=== PATIENT | female | born 1960 | race Caucasian/White ===

== ENCOUNTER 2017-12-22 10:54 | Emergency (ER) | payer MEDICARE, MEDICAID, SELFPAY ==
[2017-12-22 11:02] VITALS: BP 135/92; PULSE 86; RESP 16; TEMP 37; O2SAT 100
--- NOTE | 2017-12-22 11:18 | DI.REPORT_ITS ---
SYMPTOM/DIAGNOSIS: H/O SEVERE STENOSIS, LT BUTTOCK PAIN WITH RADIATION TO LEFT FOOT LUMBAR SPINE CT: Multiple contiguous axial images of the lumbar spine were obtained. Sagittal and coronal reformatted images were evaluated on the Siemens work station. Comparison examination is 07/23/15. Lumbar vertebral body numbering is consistent would be consistent in this report with the MRI from 07/23/15. This does differ in the numbering used in the [facility] report for 12/22/17. At L 5-S 1, there is a diffuse disc bulge. There are hypertrophic changes of the facets. This does result in mild narrowing of the central spinal canal and mild bilateral neural foraminal stenosis on the right and moderate neural foraminal stenosis on the left. At L 4-5, there is anterolisthesis which has progressed since 07/23/15. There is disc space narrowing and a vacuum disc. Endplate sclerosis is present. There are hypertrophic changes of the facets noted. No spondylolysis is present. There is moderate central spinal canal stenosis and moderately severe right and severe left neural foraminal stenosis. At L 3-4, there is a diffuse disc bulge. There are hypertrophic changes of the facets and ligamentum flavum resulting in moderate to moderately severe central spinal canal stenosis. There is moderate right and mild left neural foraminal stenosis. At L 2-3, there is no focal disc herniation, central spinal canal or neural foraminal stenosis present. L 1-2 shows no focal disc herniation, central spinal canal or neural foraminal stenosis. No acute fracture is seen in the lumbar spine. The paraspinal soft tissues are unremarkable. IMPRESSION: 1. Multi level degenerative changes in the lumbar spine. 2. Progression of the anterolisthesis of L 4 on L 5. The findings result in central spinal canal and neural foraminal stenosis at this level as described above. 3. Multi level degenerative changes resulting in central spinal canal and neural foraminal stenosis as described above. The findings are most marked at L 3-4 and L 4-5.
--- NOTE | 2017-12-22 11:23 | ED.GENADUL_ITS ---
Disposition Clinical Impression: Sciatica, Lumbago Disposition: HOME Condition: Good Instructions: Sciatica (ED) Additional Instructions: Please continue to take your medications as directed. Please contact your [facility] neurosurgeon as soon as possible for reevaluation. If you notice any anesthesia or numbness or tingling in your groin, any bowel or bladder incontinence, any lack of sensation when defecating, need to return immediately. If you notice any worsening of your symptoms, or any new symptoms such as vomiting, diarrhea, fever, chills, shortness of breath, chest pain, numbness, weakness, or fainting , please return immediately to the emergency department for reevaluation. Please follow up with your primary care provider as soon as possible for reassessment and reevaluation. As always, it was a pleasure participating in your medical care today. Referrals: Kim Parekh MD [Primary Care Provider] - Medical Decision Making - Medical Decision Making This is a 57-year-old female who presents for evaluation of left back with radiation of left leg pain. She has a history of severe spinal stenosis, for which she sees a neurosurgeon at [facility]. She states that she has been a candidate for neurosurgery however she is been unwilling to have the surgery at this point. She has a history of sciatica on the right side. She did fall 5 days ago, and has had gradual worsening of her symptoms since then. She was given Flexeril and ibuprofen by her primary care provider and is noted some improvement with this. However because of the continuing pain she is concerned that there may be some other anatomic pathology. Physical exam demonstrates no pain with movements of the joints or extremities. No pain on palpation of the calf. No signs of suggest DVT or joint or osseous abnormality. Her pain seems to mainly be referred from the lower back all the way down in a sciatic-like component. Presentation is slightly atypical though as it is worse than it normally is for her. She demonstrates no signs of saddle anesthesia, she has good rectal tone, and no bowel or bladder incontinence. Postvoid urinalysis revealed less than 17 mL. No signs of retention. We will get a CT scan of her lumbar and sacral area for evaluation of acute pathology or problem here. 1:[address] scan has resulted, imaging demonstrates no acute process, diffuse degenerative disc disease including areas of spinal stenosis and neuroforaminal narrowing. No large fracture, tumor or mass. I did contact the radiologist and discussed the case personally with him. Unfortunately we do not have MRI capabilities at this time. However on exam the patient continues to demonstrate no red flags for spinal cord compression. She has no saddle anesthesia, bowel or bladder incontinence, decreased rectal tone, or other abnormalities in regard to that. She does have the leg pain, but however this appears to be more peripheral on my exam. At this point with no signs of cord compressions I feel that she can be safely discharged home however she will require close follow-up with her [facility] neurosurgeon. We discussed red flags which to return, as well as the importance of contacting her neurosurgeon on Sunday. Patient understands. Patient does not want any additional medications for pain at this time. I have extensively reviewed the treatment plan and discharge instructions with the patient. I have addressed all patient concerns at this time. The patient was made aware of what symptoms to monitor for that would warrant a return to the emergency department. Discussed the plan with the patient, they demonstrate verbal understanding and agreement with our assessment and plan at this time. History of Present Illness - General Chief complaint: Nk/Back Pain Stated complaint: LEG/SIDE PAIN Time Seen by Provider: 12/22/17 10:58 - History of Present Illness Initial comments: This is a 57-year-old female with a past medical history of severe spinal stenosis in her cervical and lumbar vertebra, hypertension, elevated cholesterol, who sees neurosurgery at [facility] tells her that she is a candidate for potential future surgical intervention. She presents today for evaluation of left-sided back and leg pain. Patient states that 5 days ago she threw a ball for her dog and unfortunately fell and landed on her right hand side, since then she has had slight worsening left-sided pain, with an associated and radiating pain going from the left buttock all the way down to the left leg. It is worsened with movement. It is improved with palpation and rubbing of the leg. She denies any saddle anesthesia, bowel or bladder incontinence. She denies any weakness. She denies any significant weakness. She describes the pain as a severe ache in sensation. There is some associated burning sensation as well. She was seen by her primary care provider who switched her from diclofenac to maximum dose NSAIDs/Motrin. She also takes gabapentin and has been prescribed Flexeril. She states that the Flexeril and ibuprofen do improve her symptoms somewhat, but do not take them away. Patient' s primary concern today is for concern of new anatomical problem pathology in her back. Past surgical history is positive for bilateral knee replacement. She denies any IV or illicit drug use. She denies any pertinent family history. She has no other complaints at this time. - Related Data Acetaminophen [Tylenol Extra Strength] 1,000 mg PO PRN tab-cap 07/15/12 Atomoxetine [Strattera] 80 mg PO DAILY tab-cap 02/17/13 Albuterol Sulfate [Proair Hfa] 1 - 2 puff IH QID PRN #2 inhaler 06/16/16 Magnesium Oxide [Magnesium] 400 mg PO DAILY #30 tab-cap 04/04/17 Nifedipine [Nifedipine ER] 90 mg PO DAILY tab-cap 06/07/17 Duloxetine HCl 30 mg PO DAILY #90 tab-cap 07/02/17 Montelukast Sodium [Singulair] 10 mg PO DAILY #90 tab 07/31/17 Gabapentin 1,200 mg PO TID #180 tab-cap 10/23/17 Pantoprazole Sodium [Protonix] 40 mg PO DAILY #90 tab 10/23/17 Fluticasone Propionate [Flonase] 2 sprays NS DAILY #1 script 11/05/17 Esomeprazole Magnesium 40 mg PO DAILY #30 tab-cap 11/07/17 Diclofenac Sodium 75 mg PO BID PRN #60 tab-cap 11/16/17 Losartan [Cozaar] 100 mg PO DAILY #90 tab-cap 11/23/17 Cyclobenzaprine [Flexeril] 5 - 10 mg PO TID #90 tab-cap 12/20/17 Ibuprofen 800 mg PO TID #90 tab-cap 12/20/17 Allergies Allergy/AdvReac Type Severity Reaction Status Date / Time codeine AdvReac Intermediate FEELS Unverified 12/22/17 11:33 LIKE I AM CRAZY lisinopril AdvReac Mild COUGH Unverified 12/22/17 11:33 Review of Systems Other: 10 point review of systems was performed, pertinent positives and negatives are noted in the history of present illness. Past Medical History - Past Medical History Medical history: GERD, hyperlipidemia, hypertension - Social History Alcohol use: none Drug use: none General Exam - Other Other exam information: 1.Const: Well-nourished, Well-developed, appearing stated age 2.Eyes: PERRL, no conjunctival injection, and symmetrical lids. 3.ENT: Atraumatic external nose and ears. Moist MM. Neck: Symmetric, trachea midline, No thyromegaly. 4.CVS: +S1/S2, No murmurs or gallops. Peripheral pulses 2+ and equal in all extremities. Brisk capillary refill in all extremities. 5.RESP: Unlabored respiratory effort. Clear to auscultation bilaterally. No wheezes rales or rhonchi 6.GI: Soft, Nontender/Nondistended, No hepatosplenomegaly. No guarding or rebound. 7.MSK: Normocephalic/Atraumatic, Extremities w/o deformity or ttp No cyanosis or clubbing, Normal movement of all extremities. No midline tenderness to palpation over the CTLS spine. Normal ROM in flexion, extension, side bend, and rotation. Very minimal left-sided paraspinal tenderness. No significant reproducibility of her symptoms with palpation of the left buttock, over the sciatic nerve. Patient has +5 out of 5 strength in the lower extremities in dorsiflexion and plantarflexion, knee flexion and extension, hip flexion and extension. There is +2 over 2 dorsalis pedis pulses bilaterally. There is normal sensation to the skin with light touch at the foot, knee, and hip. Normal saddle sensation. Good sensation over the deep sural nerve area bilaterally. Rectal exam demonstrated normal rectal tone with no abnormalities. Reflexes are +1 over 4 in the patellar reflex bilaterally. +5 out of 5 strength in the medial, ulnar, radial nerve distribution bilaterally in the hands as well as intact light touch sensation to these dermatomes on the hands. No pain with range of motion for the hip knee and ankle joints. No calf tenderness. Patient is able to ambulate with some assistance without significant difficulty. 8.Skin: Warm, Dry. No rashes or lesions. 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 Sensation grossly intact, no focal neurologic deficits. 10.Psych: (AAO) x3. Appropriate mood and affect
[2017-12-22 11:29] LABS: Bilirubin Negative (Negative); Blood Trace-intact (Negative); Clarity Clear; Glucose Negative (Negative); Ketones Negative (Negative); Leukocyte Esterase Negative (Negative); Nitrite Negative (Negative); Specific Gravity 1.015 (1.005-1.025); Urobilinogen 0.2 EU/dL (Up TO 0.2)
[2017-12-22] MEDS: Lidocaine 5% Patch 1 PATCH TP (11:30)
[2017-12-22] MEDS: Acetaminophen 500 MG TAB 1000 MG PO (11:30)
[2017-12-22 11:40] LABS: Bacteria Rare HPF (Negative); Crystals Negative HPF (Negative); Epithelial Cells Rare HPF (Negative); RBC 0-2 (0-2); WBC 0-2 HPF (0-5)
[2017-12-22 11:41] LABS: C & S Indicated? No; Casts Negative LPF (Negative); Mucus Negative (Negative)
--- NOTE | 2017-12-22 12:26 | DI.[facility]_ITS ---
EXAM: CT Lumbar Spine Without Intravenous Contrast CLINICAL HISTORY: 57 years old, female; Signs and symptoms; Other: HX of severe stenosis, left buttock pain with radiation to the left foot TECHNIQUE: Axial computed tomography images of the lumbar spine without intravenous contrast. All CT scans at this facility use at least one of these dose optimization techniques: automated exposure control; mA and/or kV adjustment per patient size (includes targeted exams where dose is matched to clinical indication); or iterative reconstruction. Coronal and sagittal reformatted images were created and reviewed. COMPARISON: MRI - LUMBAR SPINE WO CONTRAST 07/23/2015 10:28 PM FINDINGS: Diffuse degenerative disc and facet disease. Mild anterior position of L3 with respect to L4 felt to be due to degenerative disc and facet disease. No evidence of acute fracture. Paraspinal soft tissues unremarkable. Suggestion of possible spinal stenosis at the L2-3 level and also the L3-4 level the period there is also bilateral neural foraminal narrowing at each of these levels. Please see the final report as to the possible use of MRI as a more specific means of evaluation if clinically indicated. IMPRESSION: Diffuse degenerative disc disease including areas of spinal stenosis and neuroforaminal narrowing At Dictated and Authenticated by: Ryan Hook MD. Ordering:ANGELITO BENTON MD
== END 2017-12-22 13:30 | disposition home or self-care (01) ==
PROVIDERS: Emergency Provider Student in an Organized Health Care Education/Training Program; PCP Family Medicine
DX: M54.42 Lumbago with sciatica, left side (principal); I10 Essential (primary) hypertension
CPT/HCPCS: 72131; 99283 ×2; 81003; 81015

== ENCOUNTER → 2017-12-28 02:16 | Outpatient (CLI) | payer MEDICARE, MEDICAID, SELFPAY ==
--- NOTE | 2017-12-28 08:50 | DI.REPORT_ITS ---
SYMPTOM/DIAGNOSIS: INCREASED SYMPTOMS, KNOWN SPINAL STENOSIS, LOW BACK PAIN, M48.061 LUMBAR SPINE MRI: Routine noncontrast examination. Comparison MRI is 07/23/15. Comparison CT scan is 12/22/17. The conus medullaris has a normal appearance and location. At L 5-S 1, there is a mild diffuse disc bulge. There are degenerative changes of the facets. There is very mild narrowing of the central spinal canal. There is moderately severe narrowing of the left neural foramen and mild narrowing of the right neural foramen. At L 4-5, there is grade I anterolisthesis. There are hypertrophic changes of the facets and ligamentum flavum. The findings result in severe central spinal canal stenosis. There is moderate right and moderately severe left neural foraminal stenosis. Degenerative disc disease is present. At L 3-4, there is a diffuse disc bulge. There are hypertrophic changes of the facets and ligament flavum causing moderately severe central spinal canal stenosis. There is mild bilateral neural foraminal stenosis present. At L 2-3 and L 1-2, there is no focal disc herniation, central spinal canal or neural foraminal stenosis. There is normal signal of the intervertebral discs. Apart from the degenerative endplate signal changes, predominantly at L 4-5, the marrow signal is within normal limits. IMPRESSION: 1. Multi level degenerative changes in the lumbar spine. 2. Degenerative changes and anterolisthesis at L 4-5 contributing to central spinal canal and neural foraminal stenosis. 3. Degenerative changes at L 3-4 contributing to central spinal canal and neural foraminal stenosis. 4. Left neural foraminal stenosis at L 5-S 1 due to the degenerative changes. Please see the above discussion for complete details.
== END ==
PROVIDERS: PCP Family Medicine; Visit Provider Family Medicine
DX: M48.07 Spinal stenosis, lumbosacral region; M54.5 Low back pain; M47.817 Spondylosis without myelopathy or radiculopathy, lumbosacral region
CPT/HCPCS: 72148

== ENCOUNTER 2018-01-02 00:27 | Outpatient (CLI) | payer MEDICARE, MEDICAID, SELFPAY ==
--- NOTE | 2018-01-02 10:13 | DI.RAD_ITS ---
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 The patient ingested thin and thick barium with multiple food consistencies. Note was made of penetration of the barium when eaten in conjunction with the apple. No aspiration was identified during the examination. The swallowing process was otherwise unremarkable during the examination. Please refer to the speech pathologist's report for complete details.
[2018-01-02] MEDS: Barium Sulfate 700 MG TAB PO (10:14)
== END 2018-01-02 00:47 ==
PROVIDERS: PCP Family Medicine; Visit Provider Otolaryngology Otolaryngology/Facial Plastic Surgery
DX: K21.9 Gastro-esophageal reflux disease without esophagitis (principal); R13.12 Dysphagia, oropharyngeal phase
CPT/HCPCS: 92611; G8996; 74220; J3490

== ENCOUNTER 2018-01-02 06:42 | Outpatient (CLI) | payer MEDICARE, MEDICAID, SELFPAY | END 2018-01-02 07:02 | PROVIDERS: PCP Family Medicine; Visit Provider Family Medicine | DX: R13.13 Dysphagia, pharyngeal phase (principal) | CPT/HCPCS: 92611; G8996 ==

== ENCOUNTER 2018-03-04 10:28 | Outpatient (CLI) | payer MEDICARE, MEDICAID, SELFPAY ==
[2018-03-04 12:55] LABS: HCT 39.4 % (36.0-46.0); HGB 13.6 g/dL (12.0-15.5); Mean Corp. HGB Concentration 34.5 g/dL (32.0-36.0); Mean Corpuscular Hemoglobin 30.2 pg (27.0-33.0); Mean Corpuscular Volume 87.4 fL (80-95); Mean Platelet Volume 9.5 fL (8.0-11.0); Platelet Count 276 x1000/uL (130-400); RBC 4.51 m/cumm (4.00-5.20); RBC Distribution Width 12.6 % (11.7-14.6); White Blood Cell Count 5.11 k/cumm (4.4-10.8)
[2018-03-04 13:23] LABS: Anion Gap 9.7 mmol/L (3-11); BUN 18 mg/dL (7-18); CO2 30.3 mmol/L (21.0-32.0); CREATININE 0.73 mg/dL (0.55-1.02); Chloride 102 mmol/L (98-107); Glucose 85 mg/dL (70-100); Potassium 3.9 mmol/L (3.5-5.1); Sodium 142 mmol/L (136-145)
== END 2018-03-04 10:48 ==
PROVIDERS: PCP Family Medicine; Visit Provider Family Medicine
DX: Z01.818 Encounter for other preprocedural examination (principal); M54.16 Radiculopathy, lumbar region; I10 Essential (primary) hypertension
CPT/HCPCS: 36415; 80048; 85027

== ENCOUNTER 2018-03-11 09:40 | Emergency (ER) | payer MEDICARE, MEDICAID, SELFPAY ==
[2018-03-11 09:51] VITALS: BP 140/76; PULSE 95; RESP 16; TEMP 36.4; O2SAT 98
--- NOTE | 2018-03-11 10:16 | DI.US_ITS ---
SYMPTOM/DIAGNOSIS: LEFT LOWER LEG PAIN AND SWELLING LEFT LOWER EXTREMITY ULTRASOUND: The deep veins of the left lower extremity show normal compression, augmentation and color flow. No evidence of a deep venous thrombus is identified. There is a 3 x 1.1 x 2.1 cm complex avascular fluid collection in the lower extremity corresponding to the area of palpable abnormality. There is surrounding edema in the subcutaneous tissues. This may represent a hematoma or resolving seroma. Abscess is considered less likely. IMPRESSION: 1. No evidence of a left lower extremity deep venous thrombus 2. 3 cm complex avascular fluid collection in the soft tissues. This may represent a hematoma or seroma. Please correlate clinically. The findings were discussed with Ruddy Booker of the Emergency Department on the date of the examination.
--- NOTE | 2018-03-11 10:17 | W.ED.GENAD ---
Discharge Plan Disposition Patient Disposition: HOME Condition: Stable Discharge Details Chief Complaint: Vascular Clinical Impression: Hematoma of left lower extremity, Varicose veins of lower extremity Primary Care Provider: Kim Parekh ED Provider: Ruddy Booker Home Meds and New Rx's Prescriptions: Continue montelukast [Singulair] 10 mg tablet 10 mg PO DAILY Qty: 90 RF: 4 ibuprofen 600 mg tablet 600 mg PO TID PRN (Reason: pain) Qty: 90 RF: 1 acetaminophen [Tylenol Extra Strength] 500 MG tablet 1,000 mg PO PRN RF: 0 atomoxetine [Strattera] 80 MG capsule 80 mg PO DAILY RF: 0 albuterol sulfate [ProAir HFA] 8.5 GM HFA aerosol inhaler 1 - 2 puff Inhalation QID PRNQty: 2 RF: 6 nifedipine 90 MG tablet extended release 24hr 90 mg PO DAILY RF: 0 duloxetine 30 MG capsule,delayed release(DR/EC) 30 mg PO DAILY Qty: 90 RF: 4 fluticasone 16 GM spray,suspension 2 spry NS DAILY Qty: 1 RF: 6 losartan 100 MG tablet 100 mg PO DAILY Qty: 90 RF: 3 esomeprazole magnesium 40 mg capsule,delayed release(DR/EC) 40 mg PO DAILY Qty: 90 RF: 3 gabapentin 600 mg tablet 1,200 mg PO TID Qty: 180 RF: 3 Discharge Instructions Instructions: Hematoma (ED) Additional Instructions: Feel free to return to the emergency department for any new or significant worsening of your symptoms otherwise follow-up with your primary care provider for reassessment. You may continue to use [id number] pain medication and wear your compression stockings. Referrals: Kim Parekh MD [Primary Care Provider] - (As needed for reassessment) Discharge Data Discharge Date/Time-TO BE ENTERED AT DEPARTURE: 03/11/18 13:51 Medical Decision Making Patient presenting to the emergency department for chief complaint of left lower leg pain and swelling. Patient states that 2 weeks ago she began having a palpable knot/nodule on her lower leg and thought nothing of it. Then over the last couple days this area has become ecchymotic significant increase in swelling and more uncomfortable. Patient states that she has a upcoming surgery for her back and was concerned about DVT. Physical exam does show significant varicose veins of the left lower extremity, swelling and ecchymosis to the distal tibia, no erythema and appropriate pulses. Patient has no significant tenderness to the thigh or proximal lower leg. Patient denies any injury or trauma. While patient's history of varicose veins and ecchymosis and swelling to make me consider DVT appearance of area does show some signs of may be occult injury but given that this is been going on for 2 weeks with recent increase of swelling and bruising I do feel that ultrasound image of the left lower extremity is prudent. Given concern for possible occult injury radiological imaging was also ordered. Patient denies any need for pain medication at this time. Review of ultrasound imaging with radiologist stating that there is a small fluid collection in the left lower medial aspect of the tibia otherwise no signs of DVT or thrombosis and no acute bony abnormalities on plain film imaging. Given this patient was discharged to follow-up with primary care provider for reassessment or to return for new or worsening symptom. After discussion of diagnosis and plan of care patient has no further needs, questions, or concerns and states clear understanding to return to the emergency department for any worsening symptoms. HPI General Mode of arrival: ambulatory. Date/Time Provider Initiated Documentation: 03/11/18 09:59. Limitations to Documentation: no limitations. Information obtained by: patient and RN notes reviewed. History of Present Illness 57 year old F presents to the emergency department with the chief complaint of Left leg swelling and pain, described as mild, with intensity rated at 3. Quality is described as aching, and is localized to the left and lower extremity. Patient reports no radiation. Patient started experiencing this week(s) (2) and it has been constant. No exacerbating factors reported . Patient notes no other symptoms.. Patient did receive the following treatments prior to arrival, NSAID and other (Compression stocking) Related Data Home Medications Medication Instructions Recorded Confirmed acetaminophen [Tylenol Extra 1,000 mg PO PRN tab-cap 07/15/12 03/11/18 Strength] atomoxetine [Strattera] 80 mg PO DAILY tab-cap 02/17/13 03/11/18 albuterol sulfate [ProAir HFA] 1 - 2 puff INHALATION QID PRN #2 06/16/16 03/11/18 inhaler nifedipine 90 mg PO DAILY tab-cap 06/07/17 03/11/18 duloxetine 30 mg PO DAILY #90 tab-cap 07/02/17 03/11/18 fluticasone 2 spry NS DAILY #1 script 11/05/17 03/11/18 losartan 100 mg PO DAILY #90 tab-cap 11/23/17 03/11/18 esomeprazole magnesium 40 mg 40 mg PO DAILY #90 tab-cap 01/30/18 03/11/18 capsule,delayed release gabapentin 600 mg tablet 1,200 mg PO TID #180 tab-cap 18 03/11/18 ibuprofen 600 mg tablet 600 mg PO TID PRN #90 tab 03/04/18 03/11/18 montelukast 10 mg tablet 10 mg PO DAILY #90 tab 03/04/18 03/11/18 Previous Rx's Medication Instructions Recorded duloxetine 30 mg PO DAILY #90 tab-cap 07/02/17 fluticasone 2 spry NS DAILY #1 script 11/05/17 losartan 100 mg PO DAILY #90 tab-cap 11/23/17 esomeprazole magnesium 40 mg 40 mg PO DAILY #90 tab-cap 01/30/18 capsule,delayed release gabapentin 600 mg tablet 1,200 mg PO TID #180 tab-cap 02/16/18 ibuprofen 600 mg tablet 600 mg PO TID PRN #90 tab 03/04/18 montelukast 10 mg tablet 10 mg PO DAILY #90 tab 03/04/18 Allergies Allergy/AdvReac Type Severity Reaction Status Date / Time codeine AdvReac Intermediate FEELS Unverified 03/11/18 09:54 LIKE I AM CRAZY lisinopril AdvReac Mild COUGH Unverified 03/11/18 09:54 General Stated Complaint: Vascular EPI: 3 Review of Systems Constitutional Denies frequent falls Cardiovascular Denies syncope Respiratory Denies cough Musculoskeletal Reports as per HPI and Reports back pain (chronic) Integumentary/Breasts Denies erythema and Reports unusual bruising (Left lower leg) Neurologic Denies syncope and Denies frequent falls PFSH Family History Mother No problems noted. Father Essential hypertension Neoplasm Brother No problems noted. Grandfather Emphysema lung Grandfather Essential hypertension Heart disease Grandmother Neoplasm Grandmother Heart disease FAMILY HISTORY Raynauds syndrome Social History Smoking/Tobacco Use Status: Never Surgical History Arthroplasty of knee (~01/2012) Diagnostic Laproscopy (09/09/10) EGD - MAC ULNAR RECONSTRUCTION (~08/1980) Exam Const General: cooperative, healthy appearing and no acute distress Orientation: alert, awake and oriented x3 Resp Effort & Inspection: normal respiratory effort and able to speak in complete sentences Cardio Rate: regular rate Rhythm: regular rhythm Extrem Left lower extremity: hip/thigh Details: normal to inspection; no tenderness and no swelling, knee Details: normal to inspection, lower leg Details: tenderness Location: of the distal tibia, localized swelling Location: of the distal lower leg, palpable cord (Multiple varicosities), no edema and ecchymosis; no erythema and no unusual warmth, ankle Details: normal to inspection and foot Details: normal capillary refill Course Vital Signs Temperature 36.4 C L 03/11/18 09:51 Pulse 95 H 03/11/18 09:51 Respiratory Rate 16 03/11/18 09:51 Blood Pressure 140/76 03/11/18 09:51 Pulse Oximetry 98 03/11/18 09:51 Temperature 36.4 C L 03/11/18 09:51 Temperature Source Skin 03/11/18 09:51 Pulse 95 H 03/11/18 09:51 Respiratory Rate 16 03/11/18 09:51 Respiratory Effort 03/11/18 09:51 Blood Pressure 140/76 03/11/18 09:51 Blood Pressure Position Sitting 03/11/18 09:51 Pulse Oximetry 98 03/11/18 09:51 Oxygen Delivery Method Room Air 03/11/18 09:51 Oxygen Flow Rate 0 03/11/18 09:51 Pain Level 4 03/11/18 09:51
--- NOTE | 2018-03-11 10:24 | ED.GENADUL_ITS ---
Discharge Plan Disposition Patient Disposition: HOME Condition: Stable Discharge Details Chief Complaint: Vascular Clinical Impression: Hematoma of left lower extremity, Varicose veins of lower extremity Primary Care Provider: Kim Parekh ED Provider: Ruddy Booker Home Meds and New Rx's Prescriptions: Continue montelukast [Singulair] 10 mg tablet 10 mg PO DAILY Qty: 90 RF: 4 ibuprofen 600 mg tablet 600 mg PO TID PRN (Reason: pain) Qty: 90 RF: 1 acetaminophen [Tylenol Extra Strength] 500 MG tablet 1,000 mg PO PRN RF: 0 atomoxetine [Strattera] 80 MG capsule 80 mg PO DAILY RF: 0 albuterol sulfate [ProAir HFA] 8.5 GM HFA aerosol inhaler 1 - 2 puff Inhalation QID PRNQty: 2 RF: 6 nifedipine 90 MG tablet extended release 24hr 90 mg PO DAILY RF: 0 duloxetine 30 MG capsule,delayed release(DR/EC) 30 mg PO DAILY Qty: 90 RF: 4 fluticasone 16 GM spray,suspension 2 spry NS DAILY Qty: 1 RF: 6 losartan 100 MG tablet 100 mg PO DAILY Qty: 90 RF: 3 esomeprazole magnesium 40 mg capsule,delayed release(DR/EC) 40 mg PO DAILY Qty: 90 RF: 3 gabapentin 600 mg tablet 1,200 mg PO TID Qty: 180 RF: 3 Discharge Instructions Instructions: Hematoma (ED) Additional Instructions: Feel free to return to the emergency department for any new or significant worsening of your symptoms otherwise follow-up with your primary care provider for reassessment. You may continue to use [id number] pain medication and wear your compression stockings. Referrals: Kim Parekh MD [Primary Care Provider] - (As needed for reassessment) Discharge Data Discharge Date/Time-TO BE ENTERED AT DEPARTURE: 03/11/18 13:51 Medical Decision Making Patient presenting to the emergency department for chief complaint of left lower leg pain and swelling. Patient states that 2 weeks ago she began having a palpable knot/nodule on her lower leg and thought nothing of it. Then over the last couple days this area has become ecchymotic significant increase in swelling and more uncomfortable. Patient states that she has a upcoming surgery for her back and was concerned about DVT. Physical exam does show significant varicose veins of the left lower extremity, swelling and ecchymosis to the distal tibia, no erythema and appropriate pulses. Patient has no significant tenderness to the thigh or proximal lower leg. Patient denies any injury or trauma. While patient's history of varicose veins and ecchymosis and swelling to make me consider DVT appearance of area does show some signs of may be occult injury but given that this is been going on for 2 weeks with recent increase of swelling and bruising I do feel that ultrasound image of the left lower extremity is prudent. Given concern for possible occult injury radiological imaging was also ordered. Patient denies any need for pain medication at this time. Review of ultrasound imaging with radiologist stating that there is a small fluid collection in the left lower medial aspect of the tibia otherwise no signs of DVT or thrombosis and no acute bony abnormalities on plain film imaging. Given this patient was discharged to follow-up with primary care provider for reassessment or to return for new or worsening symptom. After discussion of diagnosis and plan of care patient has no further needs, questions , or concerns and states clear understanding to return to the emergency department for any worsening symptoms. HPI General Mode of arrival: ambulatory . Date/Time Provider Initiated Documentation: 03/11/18 09:59 . Limitations to Documentation: no limitations . Information obtained by: patient and RN notes reviewed . History of Present Illness 57 year old F presents to the emergency department with the chief complaint of Left leg swelling and pain, described as mild, with intensity rated at 3. Quality is described as aching, and is localized to the left and lower extremity. Patient reports no radiation. Patient started experiencing this week(s) (2) and it has been constant. No exacerbating factors reported . Patient notes no other symptoms.. Patient did receive the following treatments prior to arrival, NSAID and other (Compression stocking) Related Data Home Medications Medication Instructions Recorded Confirmed acetaminophen [Tylenol Extra 1,000 mg PO PRN tab-cap 07/15/12 03/11/18 Strength] atomoxetine [Strattera] 80 mg PO DAILY tab-cap 02/17/13 03/11/18 albuterol sulfate [ProAir HFA] 1 - 2 puff INHALATION QID PRN #2 06/16/16 inhaler nifedipine 90 mg PO DAILY tab-cap 06/07/17 03/11/18 duloxetine 30 mg PO DAILY #90 tab-cap 07/02/17 03/11/18 fluticasone 2 spry NS DAILY #1 script 11/05/17 03/11/18 losartan 100 mg PO DAILY #90 tab-cap 11/23/17 03/11/18 esomeprazole magnesium 40 mg 40 mg PO DAILY #90 tab-cap 01/30/18 03/11/18 capsule,delayed release gabapentin 600 mg tablet 1,200 mg PO TID #180 tab-cap 18 03/11/18 ibuprofen 600 mg tablet 600 mg PO TID PRN #90 tab 03/04/18 03/11/18 montelukast 10 mg tablet 10 mg PO DAILY #90 tab 03/04/18 03/11/18 Previous Rx's Medication Instructions Recorded duloxetine 30 mg PO DAILY #90 tab-cap 07/02/17 fluticasone 2 spry NS DAILY #1 script 11/05/17 losartan 100 mg PO DAILY #90 tab-cap 11/23/17 esomeprazole magnesium 40 mg 40 mg PO DAILY #90 tab-cap 01/30/18 capsule,delayed release gabapentin 600 mg tablet 1,200 mg PO TID #180 tab-cap 02/16/18 ibuprofen 600 mg tablet 600 mg PO TID PRN #90 tab 03/04/18 montelukast 10 mg tablet 10 mg PO DAILY #90 tab 03/04/18 Allergies Allergy/AdvReac Type Severity Reaction Status Date / Time codeine AdvReac Intermediate FEELS Unverified 03/11/18 09:54 LIKE I AM CRAZY lisinopril AdvReac Mild COUGH Unverified 03/11/18 09:54 General Stated Complaint: Vascular EPI: 3 Review of Systems Constitutional Denies frequent falls Cardiovascular Denies syncope Respiratory Denies cough Musculoskeletal Reports as per HPI and Reports back pain (chronic) Integumentary/Breasts Denies erythema and Reports unusual bruising (Left lower leg) Neurologic Denies syncope and Denies frequent falls PFSH Family History Mother No problems noted. Father Essential hypertension Neoplasm Brother No problems noted. Grandfather Emphysema lung Grandfather Essential hypertension Heart disease Grandmother Neoplasm Grandmother Heart disease FAMILY HISTORY Raynauds syndrome Social History Smoking/Tobacco Use Status: Never Surgical History Arthroplasty of knee (~01/2012) Diagnostic Laproscopy (09/09/10) EGD - MAC ULNAR RECONSTRUCTION (~08/1980) Exam Const General: cooperative, healthy appearing and no acute distress Orientation: alert, awake and oriented x3 Resp Effort & Inspection: normal respiratory effort and able to speak in complete sentences Cardio Rate: regular rate Rhythm: regular rhythm Extrem Left lower extremity: hip/thigh Details: normal to inspection; no tenderness and no swelling, knee Details: normal to inspection, lower leg Details: tenderness Location: of the distal tibia, localized swelling Location: of the distal lower leg, palpable cord (Multiple varicosities), no edema and ecchymosis ; no erythema and no unusual warmth, ankle Details: normal to inspection and foot Details: normal capillary refill Course Vital Signs Temperature 36.4 C L 03/11/18 09:51 Pulse 95 H 03/11/18 09:51 Respiratory Rate 16 03/11/18 09:51 Blood Pressure 140/76 03/11/18 09:51 Pulse Oximetry 98 03/11/18 09:51 Temperature 36.4 C L 03/11/18 09:51 Temperature Source Skin 03/11/18 09:51 Pulse 95 H 03/11/18 09:51 Respiratory Rate 16 03/11/18 09:51 Respiratory Effort 03/11/18 09:51 Blood Pressure 140/76 03/11/18 09:51 Blood Pressure Position Sitting 03/11/18 09:51 Pulse Oximetry 98 03/11/18 09:51 Oxygen Delivery Method Room Air 03/11/18 09:51 Oxygen Flow Rate 0 03/11/18 09:51 Pain Level 4 03/11/18 09:51
--- NOTE | 2018-03-11 12:08 | DI.RAD_ITS ---
SYMPTOMS/DIAGNOSIS: DISTAL TIBIA PAIN LEFT TIB/FIB: Two views. The patient has a left total knee replacement. The visualized portions of the orthopedic hardware appear intact and unremarkable. The bones are intact. No bone or joint abnormality is identified. No radiopaque foreign bodies are seen in the soft tissues. IMPRESSION: No acute abnormality.
== END 2018-03-11 13:51 | disposition home or self-care (01) ==
PROVIDERS: Emergency Provider Nurse Practitioner Family; PCP Family Medicine
DX: M79.81 Nontraumatic hematoma of soft tissue (principal); I83.92 Asymptomatic varicose veins of left lower extremity
CPT/HCPCS: 99284; 73590; 93971

== ENCOUNTER 2018-07-31 07:55 | Outpatient (CLI) | payer MEDICARE, MEDICAID, SELFPAY ==
--- NOTE | 2018-07-31 12:30 | DI.MAMMO_ITS ---
SYMPTOMS/DIAGNOSIS: SCREENING, Z12.31 MAMMOGRAMS: Mammograms were interpreted according to the usual protocol including computer analysis with CAD system, tomosynthesis and C view imaging. The breast tissue is of moderate radiodensity. There is no dominant mass. There are no suspicious calcifications and there has been no significant interval change when compared with prior images. SUMMARY: No evidence of malignancy, category 1. Yearly screening mammography is recommended. Breast density category B. SA ASSESSMENT OF FINDINGS: Negative. Category 1. Patient will receive a letter notifying them of these results. BI-RADS category B. There are scattered areas of fibroglandular density.
== END 2018-07-31 08:15 ==
PROVIDERS: PCP Family Medicine; Visit Provider Family Medicine
DX: Z13.21 Encounter for screening for nutritional disorder (principal)
CPT/HCPCS: 77063; 77067

== ENCOUNTER 2019-03-20 11:57 | Outpatient (CLI) | payer MEDICARE, MEDICAID, SELFPAY ==
--- NOTE | 2019-03-20 14:50 | DI.RAD_ITS ---
EXAM: XR LUMBAR SPINE COMPLETE INDICATION: LIMB PAIN, M79.609; LBP, M54.5; L3-S1 DECOMPRESSION, L4-5 PLIF CORTICAL SCW,v45.4 COMPARISON: LUMBAR SPINE SI JOINTS WO from 12/22/2017 MRI - LUMBAR SPINE WO CONTRAST from 12/28/2017 TECHNIQUE: 2D digital imaging was performed. FINDINGS: There are 5 lumbar type vertebral bodies. Since the prior examination, the patient has undergone post erior spinal fusion at L4-L5. There has been improved alignment of the lumbar spine. No significant spondylolisthesis is present. There is no spondylolysis. There are degenerative changes seen in th e spine with endplate osteophytes and facet arthropathy no acute fractures or subluxations are seen. No significant subluxation is seen with flexion or extension. There are surgical clips in the right mid abdomen.
== END 2019-03-20 12:17 ==
PROVIDERS: PCP Family Medicine; Visit Provider Neurological Surgery
DX: M54.5 Low back pain (principal); M79.609 Pain in unspecified limb; M47.816 Spondylosis without myelopathy or radiculopathy, lumbar region; Z98.1 Arthrodesis status
CPT/HCPCS: 72110

== ENCOUNTER 2019-05-05 12:34 | Outpatient (CLI) | payer MEDICARE, MEDICAID, SELFPAY ==
[2019-05-05 17:48] LABS: ALT 48 U/L (14-59); AST 37 U/L (15-37); Alkaline Phosphatase 89 U/L (46-116); Anion Gap 9.5 mmol/L (3-11); BUN 14 mg/dL (7-18); Bilirubin, Total 0.4 mg/dL (0.2-1.0); CO2 29.5 mmol/L (21.0-32.0); CREATININE 0.79 mg/dL (0.55-1.02); Calcium 8.5 mg/dL (8.5-10.1); Calculated LDL 137 mg/dL; Chloride 106 mmol/L (98-107); Cholesterol 204 mg/dL (<200); Glucose 67 mg/dL (74-106); HDL Cholesterol 59 mg/dL (40-60); Magnesium 2.2 mg/dL (1.8-2.4); Potassium 3.6 mmol/L (3.5-5.1); Sodium 145 mmol/L (136-145); Total Protein 6.5 g/dL (6.4-8.2); Triglyceride 42 mg/dL (<150)
== END 2019-05-05 12:54 ==
PROVIDERS: PCP Family Medicine; Visit Provider Family Medicine
DX: E78.5 Hyperlipidemia, unspecified (principal); I10 Essential (primary) hypertension; E83.42 Hypomagnesemia
CPT/HCPCS: 36415; 80053; 80061; 83735

== ENCOUNTER 2019-05-12 13:19 | Emergency (ER) | payer MEDICARE, MEDICAID, SELFPAY ==
[2019-05-12 13:25] VITALS: BP 131/75; PULSE 88; RESP 18; TEMP 36.4; O2SAT 99
--- NOTE | 2019-05-12 13:36 | W.ED.GENAD ---
Discharge Plan Disposition Patient Disposition: HOME Condition: Stable Discharge Details Chief Complaint: Cellulitis Clinical Impression: Cellulitis of finger Primary Care Provider: Kim Parekh ED Provider: Asad Gonsalves Home Meds and New Rx's Prescriptions: New amoxicillin-pot clavulanate 875-125 mg tablet 1 tab PO BID 10 Days Qty: 20 RF: 0 Continued naproxen 500 mg tablet 500 mg PO BID PRN (Reason: pain) Qty: 60 RF: 3 albuterol sulfate [ProAir HFA] 90 mcg/actuation HFA aerosol inhaler 1 - 2 puff Inhalation QID PRN (Reason: bronchospasm) Qty: 18 RF: 0 acetaminophen [Tylenol Extra Strength] 500 MG tablet 1,000 mg PO PRN RF: 0 atomoxetine [Strattera] 80 MG capsule 80 mg PO DAILY RF: 0 fluticasone propionate 50 mcg/actuation spray,suspension 2 spray NS DAILY Qty: 1 RF: 12 losartan 100 mg tablet 100 mg PO DAILY Qty: 90 RF: 3 nifedipine 90 mg tablet extended release 24hr 90 mg PO DAILY Qty: 90 RF: 3 esomeprazole magnesium 40 mg capsule,delayed release(DR/EC) 40 mg PO DAILY Qty: 90 RF: 3 montelukast [Singulair] 10 mg tablet 10 mg PO DAILY Qty: 90 RF: 4 gabapentin 600 mg tablet 1,200 mg PO TID Qty: 180 RF: 6 Discharge Instructions Instructions: Cellulitis (ED) Additional Instructions: Elevate the hand above the level of the heart to reduce pain and swelling. Please take antibiotics as prescribed. First dose now and second this evening. Return if the redness progresses up the arm, you have increased pain, or any other acute concerns. May use naproxen and/or Tylenol if needed for discomfort. I recommend you take a probiotic or oscw-ktk-[id number] live culture yogurt once daily while on the antibiotic. Medical Decision Making 58-year-old female presents from home with 2-1/2 days of right long finger erythema and swelling. No known injury. She does have a number of cracks in the skin from winter weather. She does not have pain with passive extension and the area is localized over the middle phalanx. Consistent with a cellulitis. Do not feel that imaging or instrumentation are indicated. I will place her on Augmentin. She understands elevate the arm above the level of the heart as well as return indications for recheck. She is stable and appropriate for discharge to home. HPI General Mode of arrival: ambulatory. Date/Time Provider Initiated Documentation: 05/12/19 13:30. Limitations to Documentation: no limitations. Information obtained by: patient. History of Present Illness 58 year old F presents to the emergency department with the chief complaint of Right long finger infection, described as moderate, Quality is described as dull and constant, and is localized to the right and upper extremity. Patient reports no radiation. Patient started experiencing this day(s) and it has been constant. No relieving factors improve symptom(s), No exacerbating factors reported . Patient notes denies fever/chills. Patient did receive the following treatments prior to arrival, none Related Data Home Medications Medication Instructions Recorded Confirmed acetaminophen [Tylenol Extra 1,000 mg PO PRN tab-cap 07/15/12 05/08/19 Strength] atomoxetine [Strattera] 80 mg PO DAILY tab-cap 02/17/13 05/08/19 fluticasone propionate 50 2 spray NS DAILY #1 gm 06/10/18 05/08/19 mcg/actuation nasal spray,suspension losartan 100 mg tablet 100 mg PO DAILY #90 tab-cap 09/27/18 05/08/19 nifedipine 90 mg tablet,extended 90 mg PO DAILY #90 tab-cap 11/27/18 05/08/19 release 24 hr esomeprazole magnesium 40 mg 40 mg PO DAILY #90 tab-cap 01/28/19 05/08/19 capsule,delayed release naproxen 500 mg tablet 500 mg PO BID PRN #60 tab 01/29/19 05/08/19 montelukast 10 mg tablet 10 mg PO DAILY #90 tab 03/21/19 05/08/19 gabapentin 600 mg tablet 1,200 mg PO TID #180 tab-cap 04/14/19 05/08/19 albuterol sulfate 90 mcg/actuation 1 - 2 puff INHALATION QID PRN #18 05/08/19 05/08/19 aerosol inhaler gm amoxicillin-pot clavulanate 1 tab PO BID 10 Days #20 tab 05/12/19 Previous Rx's Medication Instructions Recorded fluticasone propionate 50 2 spray NS DAILY #1 gm 06/10/18 mcg/actuation nasal spray,suspension losartan 100 mg tablet 100 mg PO DAILY #90 tab-cap 09/27/18 nifedipine 90 mg tablet,extended 90 mg PO DAILY #90 tab-cap 11/27/18 release 24 hr esomeprazole magnesium 40 mg 40 mg PO DAILY #90 tab-cap 01/28/19 capsule,delayed release naproxen 500 mg tablet 500 mg PO BID PRN #60 tab 01/29/19 montelukast 10 mg tablet 10 mg PO DAILY #90 tab 03/21/19 gabapentin 600 mg tablet 1,200 mg PO TID #180 tab-cap 04/14/19 albuterol sulfate 90 mcg/actuation 1 - 2 puff INHALATION QID PRN #18 05/08/19 aerosol inhaler gm amoxicillin-pot clavulanate 1 tab PO BID 10 Days #20 tab 05/12/19 Allergies Allergy/AdvReac Type Severity Reaction Status Date / Time codeine AdvReac Intermediate FEELS Unverified 05/12/19 13:30 LIKE I AM CRAZY lisinopril AdvReac Mild COUGH Unverified 05/12/19 13:30 General Stated Complaint: Cellulitis EPI: 4 Review of Systems Narrative: No fall or injury. No cuts or lacerations. 6 systems reviewed and otherwise negative [facility] Family History Mother Alcohol abuse Depression Father Essential hypertension Bladder cancer Brother No problems noted. Maternal Grandfather Emphysema lung Paternal Grandfather Essential hypertension Heart disease Maternal Grandmother Pancreatic cancer Paternal Grandmother Heart disease FAMILY HISTORY Raynauds syndrome Social History (Updated 07/25/18 @ 14:03 by Luis Angulo) Smoking/Tobacco Use Status: Never Second Hand Exposure: Yes Alcohol Intake: never Drug use: Never Substance use type: does not use Household members: family Housing: house Communication Needs: None Do you need help understanding health information?: Never Pets and animals: Yes Pets and animals: dog(s) and farm animals Sexually active: No Do you think of yourself as: lesbian/joe/homosexual Current gender identity: female What is your relationship status?: never How often do you talk on the phone with friends or family?: never How often do you get together with friends or relatives?: decline to answer How often do you attend zoroastrian or spiritism services?: decline to answer Do you belong to any clubs or organized social groups?: no Panel score (0-1 are the most socially isolated patients): 0 What type of physical activity do you participate in: other Duration: > 90 minutes/day Frequency: daily Lauren/[employer]ist: Other Special lauren needs: No Seatbelt use: always Helmet use: Yes 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 Pleasant, well groomed, interactive. HEAD: Normocephalic, atraumatic ENT: Mucous membranes moist, External ear exam unremarkable EYES: PERRL, EOMI EXT: Full ROM, the right long finger has erythema and swelling primarily located over the middle phalanx. Distal sensation is intact. Capillary fill is less than 2 seconds. There is no pain with passive extension. Neuro: Grossly normal neurologic exam, conversant, interactive. Psych: Speech fluent, thoughts congruent, affect normal Course Vital Signs Vital signs: Vital Signs Temperature 36.4 C L 05/12/19 13:25 Pulse 88 05/12/19 13:25 Respiratory Rate 18 05/12/19 13:25 Blood Pressure 131/75 05/12/19 13:25 Pulse Oximetry 99 05/12/19 13:25 Temperature 36.4 C L 05/12/19 13:25 Temperature Source Skin 05/12/19 13:25 Pulse 88 05/12/19 13:25 Respiratory Rate 18 05/12/19 13:25 Respiratory Effort Non-Labored 05/12/19 13:30 Blood Pressure 131/75 05/12/19 13:25 Blood Pressure Position Sitting 05/12/19 13:25 Pulse Oximetry 99 05/12/19 13:25 Oxygen Delivery Method Room Air 05/12/19 13:25 Oxygen Flow Rate 0 05/12/19 13:25 Pain Level 5 05/12/19 13:25 Comment 05/12/19 13:25
[2019-05-12] MEDS: Amoxicillin 875/Clav. 125 TAB PO (13:40)
== END 2019-05-12 13:45 | disposition home or self-care (01) ==
LOC: ER 14:04
PROVIDERS: Emergency Provider Emergency Medicine; PCP Family Medicine
DX: L03.011 Cellulitis of right finger (principal)
CPT/HCPCS: 99283

== ENCOUNTER 2019-05-14 22:31 | Emergency (ER) | payer MEDICARE, MEDICAID, SELFPAY ==
--- NOTE | 2019-05-14 00:08 | DI.RAD_ITS ---
EXAM: XR FINGER RT MIDDLE INDICATION: infection. COMPARISON: RIGHT HAND COMPLETE from 05/15/2017 TECHNIQUE: 2D digital imaging was performed. FINDINGS: There is gauze around the middle finger. It somewhat obscures the bony detail. There is soft tissue swelling. Degenerative changes are noted at the interphalangeal joints as well as 3rd metacarpal ph alangeal joint. There has been no significant change when compared with the previous exam. There ar e slight deformities at the dorsal bases of the distal and middle phalanges which has the appearance of old fractures. This appears unchanged from the previous exam. IMPRESSION: Degenerative changes and soft tissue swelling. No gross evidence of osteomyelitis. Subacute or old fractures at the dorsal bases of the distal and middle phalanges.
--- NOTE | 2019-05-14 22:41 | ED.GENADUL_ITS ---
Discharge Plan Disposition Patient Disposition: HOME Condition: Fair Discharge Details Chief Complaint: Recheck Clinical Impression: Finger infection Primary Care Provider: Kim Parekh ED Provider: Shira Lepe Home Meds and New Rx's Prescriptions: New doxycycline hyclate 100 mg capsule 100 mg PO BID Qty: 14 RF: 0 Continued naproxen 500 mg tablet 500 mg PO BID PRN (Reason: pain) Qty: 60 RF: 3 albuterol sulfate [ProAir HFA] 90 mcg/actuation HFA aerosol inhaler 1 - 2 puff Inhalation QID PRN (Reason: bronchospasm) Qty: 18 RF: 0 acetaminophen [Tylenol Extra Strength] 500 MG tablet 1,000 mg PO PRN RF: 0 atomoxetine [Strattera] 80 MG capsule 80 mg PO DAILY RF: 0 fluticasone propionate 50 mcg/actuation spray,suspension 2 spray NS DAILY Qty: 1 RF: 12 losartan 100 mg tablet 100 mg PO DAILY Qty: 90 RF: 3 nifedipine 90 mg tablet extended release 24hr 90 mg PO DAILY Qty: 90 RF: 3 esomeprazole magnesium 40 mg capsule,delayed release(DR/EC) 40 mg PO DAILY Qty: 90 RF: 3 montelukast [Singulair] 10 mg tablet 10 mg PO DAILY Qty: 90 RF: 4 gabapentin 600 mg tablet 1,200 mg PO TID Qty: 180 RF: 6 Discontinued amoxicillin-pot clavulanate 875-125 mg tablet 1 tab PO BID 10 Days Qty: 20 RF: 0 Discharge Instructions Instructions: Doxycycline (By mouth), Abscess (ED) Additional Instructions: Encourage rest, ice, elevation. Tylenol and/or ibuprofen as needed for discomfort. Please take the doxycycline as prescribed. Even if symptoms improve, please take the entire course. Please soak your finger in mixture of half water and half hydrogen peroxide. Please keep this covered and wear gloves when appropriate. Please call orthopedics tomorrow morning to schedule follow- up appointment. I would like for you to be seen tomorrow or Sunday. If you develop fever/chills, increased pain or other new/worsening symptoms please seek care urgently once again. Referrals: Pramod Freire MD [ [facility] STAFF PHYSICIAN] - Medical Decision Making Patient is a pleasant 58-year-old [id number] female presenting today with chief complaint of right middle finger pain. She reports that she was seen here 3 days ago. At that time, she was diagnosed with cellulitis of her finger and placed on Augmentin. She reports she did take the Augmentin as prescribed despite this that the infection seems to be worsening. She states she is been trying to allow the Augmentin to work. Has been following the physicians instructions on care for the infection. However, swelling and discomfort have increased. She has not noted any streaking, spreading of the erythema. No fevers or chills, no other constitutional symptoms. She reports that she is also noted other areas of opening over the past year including a spider bite to her ankle, abscess requiring drainage on the left forearm, boil on the left wrist. I am concerned this patient therefore is colonized with MRSA. On exam, patient appears nontoxic. She has a notably swollen right middle finger. On the palmar surface, she has what appears to be a superficial abscess. Appears almost to be similar to a burn blister but pus is noted under the lateral margins. This is extending from the PIP to the DIP joint. She has good capillary refill. Sensation is intact. Surrounding the borders of said blister are erythematous. This seems to be the area of maximal comfort. She does have good passive range of motion without any discomfort. Not see any evidence of deep space infection or tendon involvement at this time. Given the size of the finger, progression of symptoms, I did asked Dr. Chavez to evaluate this as well. He to agrees that this is most consistent with a superficial infection and feels that unroofing the superficial abscess would be of most benefit to the patient. Also allow for better visualization appears in other possible involvement. Patient I discussed risk/benefits of opening abscess. We discussed expected procedural steps. She was understanding and wished to proceed. Please see procedure note. This was performed using standard sterile technique. Digital block was used which sufficiently anesthetized the digit. Large amount of thick purulent discharge was expressed by initially opening the skin. With this unroofed, I am appreciate one area along the radial side of the finger near the DIP joint that does appear consistent with a puncture. I am able to express pus from this. When I try to follow this in, it tracks more in medial and proximal than into the DIP joint space itself. Tracks in approximately 8 mm. Wound was covered with Xeroform gauze and bulky dressing. Patient will be switched from Augmentin to doxycycline with a concern of MRSA. I did consult with orthopedics. Was able to speak with Dr. Mendiola who advised patient begin soaking the finger in hydrogen peroxide and water. He also requested finger x- rays. I have asked that orthopedics be able to evaluate the patient tomorrow. X-rays reviewed by radiologist: FINDINGS: Bones/joints: Degenerative changes are marked in the interphalangeal joints particularly in the fifth digit. No convincing fracture. Irregularity at the base of the third distal and middle phalanges appear similar to prior and probably degenerative. No radiographic evidence of osteomyelitis. Soft tissues: Significant digital swelling in the third digit. Generalized swelling. No emphysema or radiopaque foreign body. IMPRESSION: 1. Significant digital swelling in the third digit. No emphysema or radiopaque foreign body. 2. No convincing fracture. Irregularity at the base of the third distal and middle phalanges appear similar to prior and probably degenerative. 3. No radiographic evidence of osteomyelitis. Discussed these findings with the patient. I encouraged rest, ice, elevation. Tylenol and/or ibuprofen as needed for discomfort. She is given her first dose of doxycycline while here and a second tablet for tomorrow morning. She was given strict return precautions. Should follow-up with orthopedics tomorrow, I have asked that she call the office. All of her questions and concerns were addressed and she is in agreement this plan. HPI General Mode of arrival: ambulatory . Date/Time Provider Initiated Documentation: 05/14/19 22:41 . Limitations to Documentation: no limitations . Information obtained by: patient and RN notes reviewed . History of Present Illness 58 year old F presents to the emergency department with the chief complaint of right middle finger pain, discoloration and swelling, described as moderate, with intensity rated at 6. Quality is described as burning and aching, and is localized to the right and upper extremity. Patient reports no radiation. Patient started experiencing this day(s) (4) and it has been constant. No relieving factors improve symptom(s), No exacerbating factors reported . Patient notes rash and weakness; denies fever/chills and malaise. Patient did receive the following treatments prior to arrival, other (on Augmentin) Related Data Home Medications Medication Instructions Recorded Confirmed acetaminophen [Tylenol Extra 1,000 mg PO PRN tab-cap 07/15/12 05/12/19 Strength] atomoxetine [Strattera] 80 mg PO DAILY tab-cap 02/17/13 05/12/19 fluticasone propionate 50 2 spray NS DAILY #1 gm 06/10/18 05/12/19 mcg/actuation nasal spray,suspension losartan 100 mg tablet 100 mg PO DAILY #90 tab-cap 09/27/18 05/12/19 nifedipine 90 mg tablet,extended 90 mg PO DAILY #90 tab-cap 11/27/18 05/08/19 release 24 hr esomeprazole magnesium 40 mg 40 mg PO DAILY #90 tab-cap 01/28/19 05/12/19 capsule,delayed release naproxen 500 mg tablet 500 mg PO BID PRN #60 tab 01/29/19 05/12/19 montelukast 10 mg tablet 10 mg PO DAILY #90 tab 03/21/19 05/12/19 gabapentin 600 mg tablet 1,200 mg PO TID #180 tab-cap 04/14/19 05/12/19 albuterol sulfate 90 mcg/actuation 1 - 2 puff INHALATION QID PRN #18 05/08/19 05/12/19 aerosol inhaler gm doxycycline hyclate 100 mg PO BID #14 cap 05/15/19 Previous Rx's Medication Instructions Recorded fluticasone propionate 50 2 spray NS DAILY #1 gm 06/10/18 mcg/actuation nasal spray,suspension losartan 100 mg tablet 100 mg PO DAILY #90 tab-cap 09/27/18 nifedipine 90 mg tablet,extended 90 mg PO DAILY #90 tab-cap 11/27/18 release 24 hr esomeprazole magnesium 40 mg 40 mg PO DAILY #90 tab-cap 01/28/19 capsule,delayed release naproxen 500 mg tablet 500 mg PO BID PRN #60 tab 01/29/19 montelukast 10 mg tablet 10 mg PO DAILY #90 tab 03/21/19 gabapentin 600 mg tablet 1,200 mg PO TID #180 tab-cap 04/14/19 albuterol sulfate 90 mcg/actuation 1 - 2 puff INHALATION QID PRN #18 05/08/19 aerosol inhaler gm doxycycline hyclate 100 mg PO BID #14 cap 05/15/19 Allergies Allergy/AdvReac Type Severity Reaction Status Date / Time codeine AdvReac Intermediate FEELS Unverified 05/12/19 13:30 LIKE I AM CRAZY lisinopril AdvReac Mild COUGH Unverified 05/12/19 13:30 General EPI: 4 Review of Systems Constitutional Constitutional: Reports as per HPI, Denies chills, Denies fever(s), Denies headache(s) and Denies weakness ENT Ears, Nose, Mouth, and Throat: Denies headache(s) Cardiovascular Cardiovascular: Reports as per HPI Respiratory Respiratory: Reports as per HPI and Denies cough Musculoskeletal Musculoskeletal: Reports as per HPI and Denies tingling Integumentary/Breasts Skin/Breast: Reports as per HPI, Denies rash and Denies wounds Neurologic Neurologic: Reports as per HPI, Denies headache(s), Denies tingling, Denies paresthesias and Denies weakness [facility] Surgical History Arthroplasty of knee (~01/2012) ALPINE CLINC (BOTH KNEES) SEE SCANNED Diagnostic Laproscopy (09/09/10) w/ lysis of adhesions-small bowel obstruction EGD - MAC 08/29/11;INFLAMMED ESOPHAGUS ULNAR RECONSTRUCTION (~08/1980) RECONSTRUCTIVE SURGERY RIGHT ULNAR COLLATERAL LIGAMENT Social History (Updated 07/25/18 @ 14:03 by Luis Angulo) Smoking/Tobacco Use Status: Never Second Hand Exposure: Yes Alcohol Intake: never Drug use: Never Substance use type: does not use Household members: family Housing: house Communication Needs: None Do you need help understanding health information?: Never Pets and animals: Yes Pets and animals: dog(s) and farm animals Sexually active: No Do you think of yourself as: lesbian/joe/homosexual Current gender identity: female What is your relationship status?: never How often do you talk on the phone with friends or family?: never How often do you get together with friends or relatives?: decline to answer How often do you attend yarsanism or anabaptist services?: decline to answer Do you belong to any clubs or organized social groups?: no Panel score (0-1 are the most socially isolated patients): 0 What type of physical activity do you participate in: other Duration: > 90 minutes/day Frequency: daily Lauren/Samaritan: Other Special lauren needs: No Seatbelt use: always Helmet use: Yes Drive intox or ride w/intox 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 Do you feel safe in your relationship?: Yes Exam Const General: cooperative, healthy appearing, comfortable, no acute distress, well developed and well groomed Nutritional Appearance: average body habitus and well nourished Orientation: alert and awake Resp Effort & Inspection: normal respiratory effort, able to speak in complete sentences and no respiratory distress Cardio Rate: regular rate Rhythm: regular rhythm Skin General skin exam: erythema and fluctuance (as below) Neuro General: alert and awake Cognition: normal cognition Speech: speech normal Gait: normal gait Motor: muscle tone normal throughout Sensory Exam: no sensory deficits noted Extrem Right upper extremity: normal capillary refill, wrist Details: normal to inspection and normal ROM; no tenderness and no swelling and hand Details: normal capillary refill, neurosensory exam normal, tenderness Location: of the 3rd digit Location: at the middle phalanx, at the PIP joint, at the DIP joint and on the palmar aspect, vascular exam Details: radial pulse present and normal capillary refill and swelling Location: of the 3rd digit Location: at the middle phalanx, at the distal phalanx, at the PIP joint and at the DIP joint; abnormal to inspection (notable swelling ot index finger), tendon exam abnormal (patient has limited ROM at baseline, able to be passively moved without discomfort), ROM of fingers abnormal and no unusual warmth; abnormal to inspection and ROM limited Hand/finger images: 1. area of superifical abscess. Appears most consistent with and burn blister that has underlying pus along the edges of this. Surrounding this area, skin is erythematous extending 1cm. Limited ROM but patietn states that this is not largely changed from baseline. She is able to tolerate passive ROM of both flexion and extension at MCP, PIP and DIP without discomfort. Pain only with palpation over area of erythem. No drainage. Psych Appearance: grossly normal and well kempt Mental Status: mental status grossly normal Speech and Movement: speech and movement normal Procedures Abscess I/D Site: Hand Side (if applicable): Right Sedation/analgesia: None Local Anesthetic: Lidocaine 1% (digital block) Amount of anesthesia used (mL): 5 Technique: Other (iris scissors to unroof the superifical area) Amount of fluid expressed (mL): 6 Irrigation: Yes Packing used?: None Complications: Other (none)
[2019-05-14 22:43] VITALS: BP 156/88; PULSE 89; RESP 16; TEMP 36.4; O2SAT 100
[2019-05-14 23:13] VITALS: BP 156/88; PULSE 89; RESP 16; O2SAT 100
--- NOTE | 2019-05-14 23:59 | NUR.NOTE ---
PA [place] in to I&D right 3rd digit wound. Pt zhao well. Xeroform, dsd and coban applied. Xray requested by ortho
--- NOTE | 2019-05-15 00:12 | DI.VRAD_ITS ---
PROCEDURE INFORMATION: Exam: XR Right Finger(s) Exam date and time: 05/14/2019 00:05 Age: 58 years old Clinical indication: Swelling; Fingers; Right; Additional info: Infection TECHNIQUE: Imaging protocol: XR Right fingers. Views: Minimum 2 views. COMPARISON: CR RIGHT HAND COMPLETE 05/15/2017 10:34 FINDINGS: Bones/joints: Degenerative changes are marked in the interphalangeal joints particularly in the fifth digit. No convincing fracture. Irregularity at the base of the third distal and middle phalanges appear similar to prior and probably degenerative. No radiographic evidence of osteomyelitis. Soft tissues: Significant digital swelling in the third digit. Generalized swelling. No emphysema or radiopaque foreign body. IMPRESSION: 1. Significant digital swelling in the third digit. No emphysema or radiopaque foreign body. 2. No convincing fracture. Irregularity at the base of the third distal and middle phalanges appear similar to prior and probably degenerative. 3. No radiographic evidence of osteomyelitis. Dictated and Authenticated by: Parvin Villar MD. Ordering:SHANAE Silva MD
[2019-05-15] MEDS: Doxycycline Hyclate 100 MG CAP 200 MG PO (00:22)
== END 2019-05-15 00:35 | disposition home or self-care (01) ==
PROVIDERS: Emergency Provider Physician Assistant; PCP Family Medicine
DX: L02.511 Cutaneous abscess of right hand (principal); B95.62 Methicillin resistant Staphylococcus aureus infection as the cause of diseases classified elsewhere
CPT/HCPCS: 10060; 87077; 99214; 99283; 73140; 87070; 87186; 87205

== ENCOUNTER → 2019-05-15 10:43 | Outpatient (BNVA) | payer MEDICARE, MEDICAID, SELFPAY | PROVIDERS: PCP Family Medicine; Referring Provider Family Medicine; Visit Provider Student in an Organized Health Care Education/Training Program | DX: L02.511 Cutaneous abscess of right hand (principal) | CPT/HCPCS: 99203; 99214 ==

== ENCOUNTER 2019-10-05 11:24 | Emergency (ER) | payer MEDICARE, MEDICAID, SELFPAY ==
[2019-10-05 11:26] VITALS: BP 135/83; PULSE 91; RESP 20; TEMP 37; O2SAT 100
--- NOTE | 2019-10-05 11:45 | ED.GENADUL_ITS ---
Discharge Plan Disposition Patient Disposition: HOME Condition: Improving Discharge Details Chief Complaint: Cellulitis Clinical Impression: Abscess of left middle finger Primary Care Provider: Kim Parekh ED Provider: Shira Lepe Home Meds and New Rx's Prescriptions: Continued albuterol sulfate [ProAir HFA] 90 mcg/actuation HFA aerosol inhaler 1 - 2 puff Inhalation QID PRN (Reason: bronchospasm) Qty: 18 RF: 0 acetaminophen [Tylenol Extra Strength] 500 MG tablet 1,000 mg PO PRN RF: 0 atomoxetine [Strattera] 80 MG capsule 80 mg PO DAILY RF: 0 losartan 100 mg tablet 100 mg PO DAILY Qty: 90 RF: 3 nifedipine 90 mg tablet extended release 24hr 90 mg PO DAILY Qty: 90 RF: 3 esomeprazole magnesium 40 mg capsule,delayed release(DR/EC) 40 mg PO DAILY Qty: 90 RF: 3 montelukast [Singulair] 10 mg tablet 10 mg PO DAILY Qty: 90 RF: 4 gabapentin 600 mg tablet 1,200 mg PO TID Qty: 180 RF: 6 fluticasone propionate 50 mcg/actuation spray,suspension 2 spray NS DAILY Qty: 1 RF: 12 naproxen 500 mg tablet 500 mg PO BID PRN (Reason: pain) Qty: 60 RF: 3 doxycycline hyclate 100 mg capsule 100 mg PO BID Qty: 14 RF: 0 Discharge Instructions Instructions: Abscess (ED) Additional Instructions: Keep wound clean, dry, covered. Please continue with the doxycycline as previously prescribed. Even if symptoms improve, please take the entire course. You will need follow-up with orthopedics. Please call tomorrow to schedule follow-up appointment, number listed below. If you develop fever/chills, spreading of the redness, increased pain or other new/worsening symptom please seek care urgently once again. Referrals: Kim Parekh MD [Primary Care Provider] - Cal Pham MD [ [facility]FF [facility]YSICIAN] - Medical Decision Making Patient is a pleasant 59-year-old fqqam-ucup-ieyplxqt female presenting today with chief complaint of infection to the left middle digit. She was seen by myself for similar infection on the contralateral side in April. She reports that approximately 2 weeks ago she was working in some [place] her [place] when she cut her finger with a screw. She states that she tried to care for the wound well but a crack developed in the healing skin as well as subsequent symptoms of infection. She noted erythema, warmth. No discharge. She contacted her primary care provider who advised doxycycline. This was begun by the patient on . She reports that overall, the erythema has greatly subsided as has the area of discomfort. However, she continues to have focal swelling and discomfort at the pad of the distal phalanx of the left middle finger. She denies any fevers or chills. No other constitutional symptoms. On exam, patient has a swollen distal phalanx of the left middle finger. The palmar side has a 1.5 cm in diameter area that appears to be a blister with underlying purulent fluid. While her range of motion is limited, she does allow for passive and active flexion extension. Range of motion of the other digits in the fingers unaffected. This appears to be a felon but appears quite superficial. The dorsal side mild erythema proximal to the nailbed but the site again does not appear affected. Patient I discussed risk/benefits as well as expected procedural steps of abscess drainage. She voiced understanding and wished to proceed. Area was evaluated by Dr. Gonsalves and plan discussed. Please see procedural note. Patient tolerated this well. Digital block was performed using standard sterile technique. A 1 cm incision was made going laterally across the area of abscess to break up any septations. Thick purulent discharge was expressed and wound culture was sent. He does appear to be a deeper area in the central aspect of the affected digit. Patient does report that this is where the initial injury occurred. Area was flushed copiously with sterile saline. Iodoform gauze and tubular dressing was applied. Advise follow-up with orthopedics. She will call them tomorrow to schedule follow-up appointment. The doxycycline does seem to be working well for her based on the improvement of her symptoms as described by the patient. Advised that she continue taking this. She was given strict return precautions. All of her questions and concerns were addressed and she is agreement this plan. HPI General Mode of arrival: ambulatory . Date/Time Provider Initiated Documentation: 10/05/19 11:24 . Limitations to Documentation: no limitations . Information obtained by: patient and RN notes reviewed . History of Present Illness 59 year old F presents to the emergency department with the chief com plaint of left middle finger pain, cellulitis and abscess distal aspect, described as moderate and similar to prior episodes, with intensity rated at 6. Quality is described as aching, and is localized to the left and upper extremity. Patient reports no radiation. Patient started experiencing this week(s) and it has been constant. Immobilization improves symptom(s), Movement worsens symptoms . Patient notes no other symptoms.. Patient did receive the following treatments prior to arrival, none Related Data Home Medications Medication Instructions Recorded Confirmed acetaminophen [Tylenol Extra 1,000 mg PO PRN tab-cap 07/15/12 10/05/19 Strength] atomoxetine [Strattera] 80 mg PO DAILY tab-cap 02/17/13 10/05/19 losartan 100 mg tablet 100 mg PO DAILY #90 tab-cap 09/27/18 10/05/19 nifedipine 90 mg tablet,extended 90 mg PO DAILY #90 tab-cap 11/27/18 10/05/19 release 24 hr esomeprazole magnesium 40 mg 40 mg PO DAILY #90 tab-cap 01/28/19 10/05/19 capsule,delayed release montelukast 10 mg tablet 10 mg PO DAILY #90 tab 03/21/19 10/05/19 gabapentin 600 mg tablet 1,200 mg PO TID #180 tab-cap 04/14/19 10/05/19 albuterol sulfate 90 mcg/actuation 1 - 2 puff INHALATION QID PRN #18 05/08/19 10/05/19 aerosol inhaler gm fluticasone propionate 50 2 spray NS DAILY #1 gm 07/03/19 10/05/19 mcg/actuation nasal spray,suspension naproxen 500 mg tablet 500 mg PO BID PRN #60 tab 09/26/19 10/05/19 doxycycline hyclate 100 mg capsule 100 mg PO BID #14 tab-cap 10/02/19 10/05/19 Previous Rx's Medication Instructions Recorded losartan 100 mg tablet 100 mg PO DAILY #90 tab-cap 09/27/18 nifedipine 90 mg tablet,extended 90 mg PO DAILY #90 tab-cap 11/27/18 release 24 hr esomeprazole magnesium 40 mg 40 mg PO DAILY #90 tab-cap 01/28/19 capsule,delayed release montelukast 10 mg tablet 10 mg PO DAILY #90 tab 03/21/19 gabapentin 600 mg tablet 1,200 mg PO TID #180 tab-cap 12/16/19 albuterol sulfate 90 mcg/actuation 1 - 2 puff INHALATION QID PRN #18 05/08/19 aerosol inhaler gm fluticasone propionate 50 2 spray NS DAILY #1 gm 07/03/19 mcg/actuation nasal spray,suspension naproxen 500 mg tablet 500 mg PO BID PRN #60 tab 09/26/19 doxycycline hyclate 100 mg capsule 100 mg PO BID #14 tab-cap 10/02/19 Allergies Allergy/AdvReac Type Severity Reaction Status Date / Time codeine AdvReac Intermediate FEELS Unverified 05/15/19 11:01 LIKE I AM CRAZY lisinopril AdvReac Mild COUGH Unverified 05/15/19 11:01 General Stated Complaint: Cellulitis EPI: 4 Review of Systems Constitutional Constitutional: Reports as per HPI, Denies chills, Denies fever(s), Denies headache(s) and Denies weakness ENT Ears, Nose, Mouth, and Throat: Denies headache(s) Cardiovascular Cardiovascular: Reports as per HPI Respiratory Respiratory: Reports as per HPI and Denies cough Musculoskeletal Musculoskeletal: Reports as per HPI and Denies tingling Integumentary/Breasts Skin/Breast: Reports as per HPI, Denies rash and Denies wounds Neurologic Neurologic: Reports as per HPI, Denies headache(s), Denies tingling, Denies paresthesias and Denies weakness [facility] Medical History (Updated 10/05/19 @ 12:35 by NUSRAT Putnam) Abscess of right middle finger (Acute 05/10/19) Surgical History Arthroplasty of knee (~01/2012) [facility] (BOTH KNEES) SEE SCANNED Diagnostic Laproscopy (09/09/10) w/ lysis of adhesions-small bowel obstruction EGD - MAC 08/29/11;INFLAMMED ESOPHAGUS ULNAR RECONSTRUCTION (~08/1980) RECONSTRUCTIVE SURGERY RIGHT ULNAR COLLATERAL LIGAMENT Social History (Updated 07/25/18 @ 14:03 by Luis Angulo) Smoking/Tobacco Use Status: Never Second Hand Exposure: Yes Alcohol Intake: never Drug use: Never Substance use type: does not use Household members: family Housing: house Communication Needs: None Do you need help understanding health information?: Never Pets and animals: Yes Pets and animals: dog(s) and farm animals Sexually active: No Do you think of yourself as: lesbian/joe/homosexual Current gender identity: female What is your relationship status?: never How often do you talk on the phone with friends or family?: never How often do you get together with friends or relatives?: decline to answer How often do you attend orthodox or lutheran services?: decline to answer Do you belong to any clubs or organized social groups?: no Panel score (0-1 are the most socially isolated patients): 0 What type of physical activity do you participate in: other Duration: > 90 minutes/day Frequency: daily Lauren/Jewish: Other Special lauren needs: No Seatbelt use: always Helmet use: Yes Drive intox or ride w/intox courtesy car driver: No Do you feel safe in your relationship?: Yes Exam Const General: cooperative, healthy appearing, comfortable, no acute distress, well developed and well groomed Nutritional Appearance: average body habitus and well nourished Orientation: alert and awake Resp Effort & Inspection: normal respiratory effort, able to speak in complete sentences and no respiratory distress Cardio Rate: regular rate Rhythm: regular rhythm Skin General skin exam: erythema (distal left middle phalanx) and fluctuance (white, nonblanchable area palmar side, appears purulent) Neuro General: patient alert and patient awake Cognition: normal cognition Speech: speech normal Gait: normal gait Motor: muscle tone normal throughout Sensory Exam: no sensory deficits noted Extrem Right upper extremity: normal to inspection Left upper extremity: normal capillary refill and hand Details: normal capillary refill, neuromotor exam normal, neurosensory exam normal, tendon exam normal, tenderness Location: of the 3rd digit Location: at the distal phalanx, abnormal ROM of finger (passive rom intact, seems to be limited from swelling) and swelling Location: of the 3rd digit Location: at the distal phalanx; no lacerations, no ecchymosis and no crepitus; ROM limited (limited ROM of DIP left middle finger) Hand/finger images: 1. white, nonblanchable area, appears to be like a blister with purulent discharge under. Erythema wraps around the proximal aspect of the distal phalanx. Spares distal tip of the digit. Nail bed normal with no discoloration, normal capillary refill. Erythema immediately around the blistered area. Psych Appearance: grossly normal and well kempt Mental Status: mental status grossly normal Speech and Movement: speech and movement normal Course Vital Signs Vital signs: Vital Signs Temperature 37 C 10/05/19 11:26 Pulse 91 H 10/05/19 11:26 Respiratory Rate 10/05/19 11:26 Blood Pressure 135/83 10/05/19 11:26 Pulse Oximetry 100 10/05/19 11:26 Temperature 37 C 10/05/19 11:26 Temperature Source Skin 10/05/19 11:26 Pulse 91 H 10/05/19 11:26 Respiratory Rate 10/05/19 11:26 Blood Pressure 135/83 10/05/19 11:26 Blood Pressure Position Sitting 10/05/19 11:26 Pulse Oximetry 100 10/05/19 11:26 Oxygen Delivery Method Room Air 10/05/19 11:26 Oxygen Flow Rate 0 10/05/19 11:26 Pain Level 6 10/05/19 11:26 Procedures Abscess I/D Site: Hand Side (if applicable): Left Sedation/analgesia: None Local Anesthetic: Lidocaine 1% Amount of anesthesia used (mL): 4 Technique: Incised with #11 Blade Amount of fluid expressed (mL): 3 Irrigation: Yes Packing used?: None
--- NOTE | 2019-10-06 12:51 | NUR.NOTE ---
Nursing Note: Lab called MRSA positive of finger. Dr. Norris aware. Aggie Owen.
== END 2019-10-05 13:00 | disposition home or self-care (01) ==
PROVIDERS: Emergency Provider Physician Assistant; PCP Family Medicine
DX: L02.512 Cutaneous abscess of left hand (principal); S61.213A Laceration without foreign body of left middle finger without damage to nail, initial encounter; W26.8XXA Contact with other sharp object(s), not elsewhere classified, initial encounter
CPT/HCPCS: 10060; 87077; 87070; 87186; 87205

== ENCOUNTER → 2019-10-08 11:31 | Outpatient (BNVA) | payer MEDICARE, MEDICAID, SELFPAY | PROVIDERS: PCP Family Medicine; Referring Provider Family Medicine; Visit Provider Student in an Organized Health Care Education/Training Program | DX: L02.512 Cutaneous abscess of left hand (principal) | CPT/HCPCS: 99204; 99215 ==

== ENCOUNTER → 2019-10-15 08:48 | Outpatient (BNVA) | payer MEDICARE, MEDICAID, SELFPAY | PROVIDERS: PCP Family Medicine; Referring Provider Family Medicine; Visit Provider Student in an Organized Health Care Education/Training Program | DX: L02.512 Cutaneous abscess of left hand (principal) | CPT/HCPCS: 99213 ==

== ENCOUNTER 2020-05-07 20:57 | Outpatient (REF) | payer MEDICARE, MEDICAID, SELFPAY | END 2020-05-07 21:17 | LOC: LBN 20:57 | PROVIDERS: PCP Family Medicine; Visit Provider Nurse Practitioner Family | DX: L02.412 Cutaneous abscess of left axilla (principal); L02.411 Cutaneous abscess of right axilla | CPT/HCPCS: 87077; 87070; 87186; 87205 ==

== ENCOUNTER 2022-07-04 22:29 | Outpatient (REF) | payer MEDICARE, MEDICAID, SELFPAY | END 2022-07-04 22:30 | disposition home or self-care (01) | LOC: LBN 22:29 | PROVIDERS: PCP Nurse Practitioner Family; Visit Provider Nurse Practitioner Family | DX: M79.671 Pain in right foot (principal); R29.890 Loss of height; Z78.0 Asymptomatic menopausal state | CPT/HCPCS: 87070; 87205 ==

== ENCOUNTER 2022-07-07 00:30 | Outpatient (CLI) | payer MEDICARE, MEDICAID, SELFPAY ==
--- NOTE | 2022-07-07 06:45 | DI.RAD_ITS ---
Exam(s) XR FOOT RT COMPLETE EXAM: XR FOOT RT COMPLETE CLINICAL HISTORY: WORSENING FIFTH TOE PAIN, RT FOOT PAIN, M79.671. TECHNIQUE: 2D digital imaging was performed of the right foot. Three images were obtained. AP, obl ique and lateral views were obtained. COMPARISON: CR RIGHT FOOT COMPLETE from 11/06/2014 FINDINGS: BONES: No acute fracture is present. No bony destructive lesion is seen. There is a small spur at the plantar surface of the calcaneus. There is an enthesophyte at the posterior calcaneus. JOINTS: No dislocation present. There are marked degenerative changes seen at the 1st MTP joint with loss of the joint space, subchondral sclerosis/cysts and bony hypertrophy. SOFT TISSUE: Normal. IMPRESSION: 1. No acute abnormality. 2. Degenerative changes of the foot particularly at the 1st MTP joint. DATA REPOSITORY: RADIATION DOSE DELIVERED:
--- NOTE | 2022-07-07 06:55 | DI.MRI_ITS ---
Exam(s) MR LUMBAR SPINE WO EXAM: MR LUMBAR SPINE WO CLINICAL HISTORY: increased issues with coordination,INTERVERTEBRAL DISC DISORDER,M51.06. TECHNIQUE: Multiplanar multisequence MRI of the Lumbar spine was performed. COMPARISON: MR MRI - LUMBAR SPINE WO CONTRAST from 12/28/2017 CR XR LUMBAR SPINE COMPLETE from 03/20/2019 FINDINGS: Bones: The last intervertebral disc space is designated the L5/S1 level for the numbering purpose of this examination. The vertebral body heights are well maintained. Alignment is satisfactory. The si gnal characteristics are unremarkable. Since the prior examination the patient has undergone posterio r spinal surgery at L4 and L5. Cord: The conus tip ends at the L1 level. It is of normal size and signal intensity. T12-L1: No disc herniations or bulges are present. No central spinal canal or neural foraminal stenos is. L1-2: No disc herniations or bulges are present. No central spinal canal or neural foraminal stenosis . L2-3: No disc herniations or bulges are present. There are hypertrophic changes of the facets and lig amentum flavum. This causes mild narrowing of the central spinal canal. L3-4: There is a diffuse disc bulge. There are hypertrophic changes of the facets. There is moderat e narrowing of the central spinal canal. No significant neural foraminal stenosis is seen. L4-5: No disc herniations or bulges are present. No central spinal canal or neural foraminal stenosis . L5-S1: There are degenerative changes of the facets and a small diffuse disc bulge. No significant c entral spinal canal stenosis is present. No right neural foraminal stenosis is seen. There is marke d narrowing of the left neural foramen. Soft tissues: The visualized SI joints and sacrum are well maintained. The paraspinal soft tissues ar e unremarkable. IMPRESSION: 1. Interval spinal surgery at L4-5. 2. Degenerative changes at L5-S1 causing marked left neural foraminal stenosis. 3. Degenerative changes at L3-L4 causing moderate narrowing of the central spinal canal. 4. Degenerative changes at L2-L3 causing mild narrowing of the central spinal canal. DATA REPOSITORY:
== END 2022-07-07 00:50 ==
LOC: DI 00:30
PROVIDERS: PCP Nurse Practitioner Family; Visit Provider Nurse Practitioner Family
DX: M79.671 Pain in right foot (principal); M47.817 Spondylosis without myelopathy or radiculopathy, lumbosacral region; M48.07 Spinal stenosis, lumbosacral region
CPT/HCPCS: 72148; 73630

== ENCOUNTER 2022-08-15 01:45 | Outpatient (CLI) | payer MEDICARE, MEDICAID, SELFPAY ==
--- NOTE | 2022-08-15 | DI.MRI_ITS ---
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 COMPARISON: MR MRI - CERVICAL SPINE WO CONT from 11/28/2013 FINDINGS: BONES: Vertebral body heights are maintained. Intervertebral disc spaces are normal. Alignment is nor mal. Bone marrow signal intensity is within normal limits. CERVICAL CORD: Craniovertebral junction is unremarkable. The cervical cord is normal size and signal intensity. SOFT TISSUES: Unremarkable. C2-3: No disc herniation or bulge is identified. No significant central spinal canal or neural forami nal stenosis. C3-4: No focal disc herniation is seen. There is prominence of the right uncovertebral joints causin g mild narrowing of the right neural foramen. No significant central spinal canal or left neural for aminal stenosis is seen. C4-5: There is prominence of the osteophyte disc complex. There is narrowing of the AP diameter of t he spinal cord with some flattening of the spinal cord. No abnormal signal seen within the spinal co rd at this level. There is mild right and wnaj-sn-[id number] left neural foraminal narrowing. C5-6: There is prominence of the osteophyte disc complex with a face mint of the anterior spinal cord . There is mild narrowing of the AP diameter of the spinal canal. No abnormal signal is seen in the spinal cord. No significant left neural foraminal stenosis is seen. There is hpqs-bq-nkfdodlf narr owing of the right neural foramen. C6-7: There is mild prominence of the osteophyte disc complex. There is mild to moderate right neura l foraminal stenosis. No significant left neural foraminal stenosis. C7-T1: No disc herniation or bulge is identified. No significant central spinal canal or neural nataliya inal stenosis IMPRESSION: 1. Multilevel degenerative changes in the cervical spine resulting in multilevel central spinal canal and neural foraminal stenosis. The findings are most marked involving the right neural foramen. 2. Normal signal in the spinal cord. DATA REPOSITORY:
== END 2022-08-15 02:05 ==
LOC: DI 01:45
PROVIDERS: PCP Nurse Practitioner Family; Visit Provider Physician Assistant Surgical
DX: R26.89 Other abnormalities of gait and mobility (principal); Z98.1 Arthrodesis status; R29.6 Repeated falls
CPT/HCPCS: 72141

== ENCOUNTER 2022-10-19 01:30 | Outpatient (CLI) | payer MEDICARE, MEDICAID, SELFPAY ==
--- NOTE | 2022-10-19 08:15 | DI.DEXA_ITS ---
Exam(s) XR DEXA BONE DENSITY W/WO ESSIE EXAM: XR DEXA BONE DENSITY W/WO ESSIE CLINICAL HISTORY: has lost 4 inches, POSTMENOPAUSAL STATE, LOSS OF HEIGHT, Z78.0, R29.890 TECHNIQUE: [employer] Horizon C densitometer analysis of left hip, lumbar spine and left forearm. Lat era survey image of the thoracic and lumbar spine was not performed due to the presence of hardware. . COMPARISON: DX DEXA BONE DENSITY WITH ESSIE from 03/01/2010 FINDINGS: Bone mineral density measurements of the left hip correspond to a total T-score of -0.7. The femora l neck T-score is -0.7, in the normal range. This represents a 14.9 percent decrease when compared with 2009. The left forearm bone mineral density measurements correspond to a T-score of the distal 3rd of 0.1, in the normal range. This represents a 12.9 percent decrease compared with 2009.. IMPRESSION: Normal bone mineral density. Decrease in bone density compared with 2009.
--- NOTE | 2022-10-19 08:15 | DI.MAMMO_ITS ---
Exam(s) MAMMO SCREENING EXAM: MAMMO SCREENING CLINICAL HISTORY: screening, Z12.39 TECHNIQUE: Mammograms were interpreted according to the usual protocol including computer analysis w [employer] CAD system, tomosynthesis and C-view imaging. COMPARISON: [id number] FINDINGS: The breasts are composed of scattered fibroglandular densities, Breast Density category B. No suspicious masses or suspicious microcalcifications are seen. No skin thickening or abnormal axillary lymph nodes are seen. There has been no significant change from prior exams. IMPRESSION: BI-RADS Category 1, Negative mammogram Yearly screening mammography is recommended. Breast Density - Category B, scattered fibroglandular densities. A negative radiographic report should not delay biopsy if a dominant or clinically suspicious mass is present. Up to ten percent of cancers are not identified on mammography. A negative report may reinforce clinical impression. Adenosis and dense breasts may obscure an underlying neoplasm. False positive reports average 6 to 10%. Patient will receive a letter notifying them of these results.
== END 2022-10-19 01:50 ==
PROVIDERS: PCP Nurse Practitioner Family; Visit Provider Nurse Practitioner Family
DX: R29.890 Loss of height (principal); Z78.0 Asymptomatic menopausal state; M79.671 Pain in right foot; Z12.31 Encounter for screening mammogram for malignant neoplasm of breast; Z13.820 Encounter for screening for osteoporosis
CPT/HCPCS: 77063; 77067; 77080

== ENCOUNTER 2022-10-19 16:30 | Outpatient (CLI) | payer MEDICARE, MEDICAID, SELFPAY ==
[2022-10-19 14:34] LABS: HCT 39.8 % (36.0-46.0); HGB 13.6 g/dL (11.2-15.7); MCH 29.1 pg (27.0-33.0); MCHC 34.2 % (32.0-36.0); MCV 85 fL (80-95); Platelet Count 292 10^3/uL (130-400); RBC 4.68 10^6/uL (3.93-5.22); RDW 12.8 % (11.7-14.6); RDW-SD 39.4 fL; WBC 6.74 10^3/uL (4.4-10.8)
[2022-10-19 15:15] LABS: Folate 18.4 ng/mL (8.6-20.0); Vitamin B12 306 pg/mL (193-986)
== END 2022-10-19 16:31 | disposition home or self-care (01) ==
LOC: LBO 16:34
PROVIDERS: PCP Nurse Practitioner Family; Visit Provider Nurse Practitioner Family
DX: R20.2 Paresthesia of skin (principal); I10 Essential (primary) hypertension
CPT/HCPCS: 36415; 77063; 77067; 77080; 85027; 82607; 82746

== ENCOUNTER → 2023-02-26 02:33 | Outpatient (CLI) | payer MEDICARE, MEDICAID, SELFPAY ==
--- NOTE | 2023-02-26 08:45 | DI.RAD_ITS ---
Exam(s) XR FOOT RT COMPLETE EXAM: XR FOOT RT COMPLETE CLINICAL HISTORY: Hammertoe/possible osteomyelitis left 4/5 interspace, M20.41. TECHNIQUE: 2D digital imaging was performed. Three views. COMPARISON: CR XR FOOT RT COMPLETE from 07/07/2022 FINDINGS: BONES: No acute fracture is present. No bony destructive lesion is seen. Heel spurs. JOINTS: No dislocation present. Severe degenerative changes of the 1st MTP joint. SOFT TISSUE: Swelling around 5th toe. No foreign body or abnormal gas collection. IMPRESSION: Severe degenerative changes of the 1st MTP joint. No radiograph evidence of osteomyelitis. DATA REPOSITORY: RADIATION DOSE DELIVERED:
== END ==
PROVIDERS: PCP Nurse Practitioner Family; Visit Provider Podiatrist
DX: M20.41 Other hammer toe(s) (acquired), right foot (principal)
CPT/HCPCS: 73630

== ENCOUNTER 2023-07-02 14:56 | Outpatient (CLI) | payer MEDICARE, MEDICAID, SELFPAY ==
--- NOTE | 2023-07-02 13:22 | DI.RAD_ITS ---
Exam(s) XR HAND RT COMPLETE EXAM: XR HAND RT COMPLETE CLINICAL HISTORY: increasing pain, M79.89. TECHNIQUE: 2D digital imaging was performed. Three views. COMPARISON: CR,XR XR FINGER RT MIDDLE from 05/15/2019 FINDINGS: BONES: No acute fracture is present. No bony destructive lesion is seen. JOINTS: No dislocation present. Advanced degenerative changes of the interphalangeal joints. Mild subluxation at the distal interphalangeal joint of the middle finger. Severe degenerative changes at the 3rd metacarpophalangeal joint. Milder degenerative changes elsewhere. SOFT TISSUE: Swelling over the dorsal metacarpal region. No abnormal gas collection or foreign body. IMPRESSION: Severe degenerative changes of the interphalangeal joints of the fingers and 3rd metacarpophalangeal joint. No acute bony erosions or fracture. DATA REPOSITORY: RADIATION DOSE DELIVERED:
[2023-07-02 21:38] LABS: Abs Immature Grans 0.01 10^3/uL (0.0-0.06); Absolute Basophil Count 0.08 10^3/uL (0.0-0.2); Absolute Eosinophil Count 0.34 10^3/uL (0.0-0.7); Absolute Lymphocyte Count 1.49 10^3/uL (1.2-3.4); Absolute Monocyte Count 0.55 10^3/uL (0.1-0.8); Absolute Neutrophil Count 3.93 10^3/uL (1.2-6.7); Basophils % 1.3; Eosinophils % 5.3; HCT 39.9 % (36.0-46.0); HGB 13.6 g/dL (11.2-15.7); Immature Grans % 0.2; Lymphocytes % 23.3; MCH 29.1 pg (27.0-33.0); MCHC 34.1 % (32.0-36.0); MCV 85 fL (80-95); MPV 9.8 fL (8.0-11.0); Monocytes % 8.6; Neutrophils % 61.3; Platelet Count 312 10^3/uL (130-400); RBC 4.68 10^6/uL (3.93-5.22); RDW 12.6 % (11.7-14.6); RDW-SD 38.5 fL
[2023-07-02 22:05] LABS: ALT 56 U/L (14-59); AST 49 U/L (15-37); Alkaline Phosphatase 103 U/L (46-116); Anion Gap 9.9 mmol/L (3-11); BUN 20 mg/dL (7-18); Bilirubin, Total 0.3 mg/dL (0.2-1.0); CO2 26.1 mmol/L (21.0-32.0); CREATININE 0.8 mg/dL (0.55-1.02); Calcium 8.6 mg/dL (8.5-10.1); Chloride 106 mmol/L (98-107); Estimated GFR 83.78 (mL/min/1.73m2); Glucose 119 mg/dL (74-106); Potassium 3.4 mmol/L (3.5-5.1); Sodium 142 mmol/L (136-145); Total Protein 6.5 g/dL (6.4-8.2); Uric Acid 2.6 mg/dL (2.6-6.0)
== END 2023-07-02 14:57 | disposition home or self-care (01) ==
LOC: DI 14:57 → LBN 21:22
PROVIDERS: PCP Nurse Practitioner Family; Visit Provider Nurse Practitioner Family
DX: M25.541 Pain in joints of right hand (principal); M19.041 Primary osteoarthritis, right hand; M79.89 Other specified soft tissue disorders; R79.89 Other specified abnormal findings of blood chemistry
CPT/HCPCS: 80053; 73130; 84550; 85025

== ENCOUNTER → 2023-08-14 02:23 | Outpatient (CLI) | payer MEDICARE, MEDICAID, SELFPAY ==
--- NOTE | 2023-08-14 08:00 | DI.MRI_ITS ---
Exam(s) MR CERVICAL SPINE WO EXAM: MR CERVICAL SPINE WO CLINICAL HISTORY: cervical stenosis of spine,m48.02 TECHNIQUE: Multiplanar multisequence MRI of the cervical spine was performed without intravenous con trast. COMPARISON: MR MR CERVICAL SPINE WO from 08/15/2022 FINDINGS: BONES: Vertebral body heights are maintained. Alignment is normal. Bone marrow signal intensity is wi thin normal limits. CERVICAL CORD: Craniovertebral junction is unremarkable. The cervical cord is normal size and signal intensity. SOFT TISSUES: Unremarkable. C2-3: No disc herniation or bulge is identified. No evidence of neural foraminal narrowing secondary to encroachment of the uncovertebral joint. No significant central canal stenosis. C3-4: No disc herniation or bulge is identified. Right neural foraminal narrowing. No significant anita tral canal stenosis. C4-5: Moderate loss of disc height. Broad-based disc osteophytes. Bilateral left greater than right .Neural foraminal narrowing. No change in central canal stenosis with loss of AP dimension of the anita tral canal.. C5-6: Moderate loss of disc height. Broad-based disc bulging narrowing of the central canal causing mild central canal stenosis. Some CSF remains present around the cord. Cavj-iw-vsvqivws right neura l foraminal narrowing. C6-7: Mild disc osteophytes. Mild to moderate right neural foraminal narrowing. No significant centr al canal stenosis. C7-T1: No disc herniation or bulge is identified. No evidence of neural foraminal narrowing. No signi ficant central canal stenosis. IMPRESSION: Multilevel degenerative disc changes again causing central canal stenosis at C4-5 and C5-6. Multilev el neural foraminal narrowing, greater on the right. No detectable change from prior. DATA REPOSITORY:
== END ==
PROVIDERS: PCP Nurse Practitioner Family; Visit Provider Nurse Practitioner Family
DX: M48.02 Spinal stenosis, cervical region (principal); M99.51 Intervertebral disc stenosis of neural canal of cervical region; M99.61 Osseous and subluxation stenosis of intervertebral foramina of cervical region
CPT/HCPCS: 72141

== ENCOUNTER 2023-12-10 10:48 | Outpatient (CLI) | payer MEDICARE, MEDICAID, SELFPAY ==
--- NOTE | 2023-12-10 10:45 | RT.EKG_ITS ---
APPROVED REPORT Exam: Resting ECG Reason for Exam: pre-op examination Patient Location: O HR:75 bpm ECG Measurements Heart Rate 75 AXIS WV 157 P 47 QRSd 101 QRS 43 QT 524 T 75 QTc 586 Conclusion Sinus rhythm...normal P axis, V-rate 50- 99 Borderline T wave abnormalities...T/QRS ratio < 1/20 or flat T Prolonged QT interval...QTc >500mS
== END 2023-12-10 10:49 | disposition home or self-care (01) ==
LOC: DI.CM 10:49
PROVIDERS: PCP Nurse Practitioner Family; Visit Provider Nurse Practitioner Family
DX: Z01.818 Encounter for other preprocedural examination (principal)
CPT/HCPCS: 93010

== ENCOUNTER 2024-07-15 18:07 | Outpatient (REF) | payer MEDICARE, MEDICAID, SELFPAY ==
[2024-07-15 22:30] LABS: Hepatitis C Ab w Rflx HCV PCR Negative (Negative)
[2024-07-15 22:49] LABS: HIV-1/2 Ag & Ab Screen Negative (Negative)
[2024-07-15 22:50] LABS: HBs Antibody, Quant <3.1 mIU/mL (See Note); Hep B Surface Ab Negative (See Note); Hepatitis B Core Antibody Negative (Negative); Hepatitis B Surface Antigen Negative (Negative)
== END 2024-07-15 18:08 | disposition home or self-care (01) ==
LOC: LBN 18:07
PROVIDERS: PCP Nurse Practitioner Family; Visit Provider Nurse Practitioner Family
DX: Z11.59 Encounter for screening for other viral diseases (principal); Z11.4 Encounter for screening for human immunodeficiency virus [HIV]; Z23 Encounter for immunization; Z12.11 Encounter for screening for malignant neoplasm of colon
CPT/HCPCS: 86704; 86706; 86803; 87340; 87389

== ENCOUNTER 2025-01-20 11:16 | Outpatient (CLI) | payer MEDICARE, MEDICAID, SELFPAY ==
[2025-01-20 14:07] LABS: HCT 39.9 % (36.0-46.0); HGB 13.8 g/dL (11.2-15.7); MCH 30.1 pg (27.0-33.0); MCHC 34.6 % (32.0-36.0); MCV 87 fL (80-95); MPV 9.4 fL (8.0-11.0); Platelet Count 297 10^3/uL (130-400); RBC 4.59 10^6/uL (3.93-5.22); RDW 12.3 % (11.7-14.6); RDW-SD 39.1 fL; WBC 6.20 10^3/uL (4.4-10.8)
[2025-01-20 14:49] LABS: ALT 35 U/L (14-59); AST 37 U/L (15-37); Albumin 4.3 g/dL (3.4-5.0); Alkaline Phosphatase 87 U/L (46-116); Anion Gap 9.5 mmol/L (3-11); BUN 21 mg/dL (7-18); Bilirubin, Total 0.4 mg/dL (0.2-1.0); CO2 28.5 mmol/L (21.0-32.0); Calcium 9.0 mg/dL (8.5-10.1); Chloride 104 mmol/L (98-107); Estimated GFR 97.12 (mL/min/1.73m2); Glucose 114 mg/dL (74-106); Potassium 3.7 mmol/L (3.5-5.1); Sodium 142 mmol/L (136-145); Total Protein 6.9 g/dL (6.4-8.2)
== END 2025-01-20 11:17 | disposition home or self-care (01) ==
LOC: LOS 11:16
PROVIDERS: PCP Nurse Practitioner Family; Visit Provider Nurse Practitioner Family
DX: E78.5 Hyperlipidemia, unspecified (principal); K21.9 Gastro-esophageal reflux disease without esophagitis
CPT/HCPCS: 36415; 80053; 85027